=== PATIENT | female | born 2000 | race American Indian/Alaskan Native ===

== ENCOUNTER 2021-10-15 09:43 | Emergency (ER) | payer MEDICAID ==
[2021-10-15 10:46] VITALS: BP 125/69
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
[2021-10-15 14:24] LABS: Bacteria,Urine 1+ /HPF (Negative); Bilirubin,Urine NEG (Negative); Blood,Urine NEG (Negative); Color,Urine Yellow (Yellow); Mucus,Urine FEW /HPF; Protein,Urine <15 mg/dL mg/dL (Negative); Urobilinogen,Urine < 2.0 mg/dL (<2.0)
== END 2021-10-15 20:44 | disposition left against medical advice (07) ==
LOC: ED 09:43
DX: O00.01 Abdominal pregnancy with intrauterine pregnancy (principal); O26.891 Other specified pregnancy related conditions, first trimester; R10.9 Unspecified abdominal pain; S30.1XXA Contusion of abdominal wall, initial encounter; Z3A.14 14 weeks gestation of pregnancy; V87.7XXA Person injured in collision between other specified motor vehicles (traffic), initial encounter; X58.XXXA Exposure to other specified factors, initial encounter; Y92.89 Other specified places as the place of occurrence of the external cause; Y99.8 Other external cause status
CPT/HCPCS: 76805; 81001; 99283

== ENCOUNTER 2022-01-30 21:14 | Outpatient (CLI) | payer MEDICAID ==
[2022-01-30] MEDS ORDERED: LACTATED RINGERS 1,000 ML IV ONE (21:44)
[2022-01-30 21:56] VITALS: BP 139/85
[2022-01-30 22:03] LABS: Bilirubin,Urine NEG (Negative); Blood,Urine NEG (Negative); Color,Urine Yellow (Yellow); Protein,Urine <15 mg/dL mg/dL (Negative); Urobilinogen,Urine < 2.0 mg/dL (<2.0); WBC,Urine < 1.0 /HPF (0.0-6.0)
== END 2022-01-30 23:50 | disposition home or self-care (01) ==
LOC: LD 21:14 → TRG 21:14
PROVIDERS: ATTEND Obstetrics & Gynecology
DX: O26.893 Other specified pregnancy related conditions, third trimester (principal); R35.0 Frequency of micturition; Z3A.29 29 weeks gestation of pregnancy
CPT/HCPCS: 59025; 81001; 96360; J7120

== ENCOUNTER 2022-04-04 06:03 | Inpatient (IN) | payer MEDICAID ==
[2022-04-04] MEDS ORDERED: OXYTOCIN DRIP 30 UNITS/500 ML BAG IV SCH ×3 (07:00→16:00)
[2022-04-04] MEDS ORDERED: LACTATED RINGERS 1,000 ML IV SCH (07:00)
[2022-04-04 07:23] LABS: Hematocrit 37.6 % (30.3-42.9); Hemoglobin 12.3 gm/dl (10.1-14.3); Mean Corpuscular HGB Conc 33 % (30-34); Mean Corpuscular Volume 83 fl (79-97); Platelet Count 269 K/mm3 (140-440); Red Blood Count 4.55 M/mm3 (3.65-5.03); Red Cell Distribution Width 13.9 % (13.2-15.2)
[2022-04-04] MEDS ORDERED: MINERAL OIL 30 ML ORAL LIQD PO PRN (08:00)
[2022-04-04] MEDS ORDERED: METHYLERGONOVINE MALEATE 0.2 MG/ML VIAL IM PRN (08:00)
[2022-04-04] MEDS ORDERED: ePHEDrine SULFATE 50 MG/1 ML INJ IV PRN (08:00)
[2022-04-04] MEDS ORDERED: LOPERAMIDE 2 MG CAP PO PRN (08:00)
[2022-04-04] MEDS ORDERED: TERBUTALINE 1 MG/1 ML INJ SUB-Q PRN (08:00)
[2022-04-04] MEDS ORDERED: NALOXONE 0.4 MG/1 ML INJ IV PRN (08:00)
[2022-04-04] MEDS ORDERED: CARBOPROST TROMETHAMINE 250 MCG/1 ML INJ IM PRN (08:00)
[2022-04-04] MEDS ORDERED: ONDANSETRON 4 MG/2 ML INJ IV PRN ×2 (08:30→15:11)
[2022-04-04] MEDS ORDERED: BUTORPHANOL 2 MG/1 ML INJ IV PRN (08:30)
[2022-04-04] MEDS ORDERED: OXYTOCIN 10 UNIT/1 ML INJ IM PRN (08:30)
[2022-04-04] MEDS ORDERED: miSOPROStol 200 MCG TAB PR PRN (08:30)
[2022-04-04] MEDS ORDERED: ACETAMINOPHEN 325 MG TAB PO PRN (08:30)
[2022-04-04] MEDS ORDERED: fentaNYL 100 MCG/2 ML INJ IV PRN (08:30)
[2022-04-04] MEDS ORDERED: LIDOCAINE (2%) 20 MG/1 ML VIAL 20 ML MDV INFILTRATI SCH (08:30)
[2022-04-04] MEDS ORDERED: LIDOCAINE MPF (2%) 20 MG/1 ML VIAL 5 ML ONE (08:50)
--- NOTE | 2022-04-04 10:02 | History and Physical Report ---
History of Present Illness Date of examination: 04/04/22 Date of admission: 04/04/22 06:57 Chief complaint: contractions History of present illness: Pt is a 21 year old GABBY 04/15/22 at 38w3d presents with painful contractions and cervical dilation of 4/50/-3. She denies leakage of fluid or vaginal bleeding. She has had care at [facility]'s [facility] Appraiser since 23 wks complicated by obesity, late entry to care, atrial septal aneurysm followed by [facility], silent carrier of alpha thalassemia, and trichomonas and yeast treated with a negative test of cure. She is GBS negative. Past History Past Medical History: other (PCOS ) Past Surgical History: no surgical history DEPARTMENT CHAIR History: trichomonas (treated with negative test of cure ) Family/Genetic History: none Social history: no significant social history - Obstetrical History Expected Date of Delivery: 04/15/22 Actual Gestation: 38 Week(s) 3 Day(s) : 2 Para: 1 Hx # Term Pregnancies: 1 Number of Pregnancies: 0 Spontaneous Abortions: 0 Induced : 0 Number of Living Children: 1 Medications and Allergies Allergies Allergy/AdvReac Type Severity Reaction Status Date / Time azithromycin Allergy Vomiting Verified 01/30/22 21:33 [From Zithromax Z-Jose Carlos] Home Medications Medication Instructions Recorded Confirmed Last Taken Type Pnv,Calcium 72/Iron/Folic Acid 1 tab PO DAILY 01/30/22 01/30/22 01/30/22 History [M-Jesus Plus Tablet] Pnv,Calcium 72/Iron/Folic Acid 1 tab PO DAILY 01/30/22 01/30/22 01/30/22 History [M- Plus Tablet] Active Meds: Active Medications Acetaminophen (Acetaminophen 325 Mg Tab) 650 mg PO Q4H PRN PRN Reason: Pain, Mild (1-3) Butorphanol Tartrate (Butorphanol 2 Mg/1 Ml Inj) 1 mg IV Q2H PRN PRN Reason: Pain, Moderate(4-6) LABOR PAIN Carboprost Tromethamine (Carboprost Tromethamine 250 Mcg/1 Ml Inj) 250 mcg IM ONCE PRN PRN Reason: Uterine Bleeding Ephedrine Sulfate (Ephedrine Sulfate 50 Mg/1 Ml Inj) 10 mg IV Q2M PRN PRN Reason: Hypotension Fentanyl (Fentanyl 100 Mcg/2 Ml Inj) 100 mcg IV Q2H PRN PRN Reason: Pain,Severe (7-10) LABOR PAIN Oxytocin/Sodium Chloride (Pitocin/Ns 30 Unit/500ml) 30 units in 500 mls @ 2 m ls/hr IV TITR BARBIE; Protocol Lactated Ringer's (Lactated Ringers) 1,000 mls @ 125 mls/hr IV DIRECT BARBIE Last Admin: 04/04/22 07:40 Dose: 125 mls/hr Oxytocin/Sodium Chloride (Pitocin/Ns 30 Unit/500ml) 30 units in 500 mls @ 40 mls/hr IV TITR BARBIE; Protocol Lidocaine (Lidocaine (2%) 20 Mg/1 Ml Vial 20 Ml Mdv) 20 ml INFILTRATI ONCE@0830 BARBIE Stop: 04/05/22 08:29 Loperamide HCl (Loperamide 2 Mg Cap) 2 mg PO ONCE PRN PRN Reason: give with Hemabate Methylergonovine Maleate (Methylergonovine Maleate 0.2 Mg/Ml Vial) 0.2 mg IM ONCE PRN PRN Reason: Uterine Bleeding Mineral Oil (Mineral Oil 30 Ml Oral Liqd) 30 ml PO QHS PRN PRN Reason: Constipation Misoprostol (Misoprostol 200 Mcg Tab) 800 mcg OK ONCE PRN PRN Reason: Uterine Bleeding Naloxone HCl (Naloxone 0.4 Mg/1 Ml Inj) 0.1 mg IV Q2MIN PRN PRN Reason: Res Rate </= 8 or 02 SAT < 92% Ondansetron HCl (Ondansetron 4 Mg/2 Ml Inj) 4 mg IV Q8H PRN PRN Reason: Nausea And Vomiting Oxytocin (Oxytocin 10 Unit/1 Ml Inj) 10 unit IM ONCE PRN PRN Reason: Uterine Bleeding Terbutaline Sulfate (Terbutaline 1 Mg/1 Ml Inj) 0.25 mg SUB-Q ONCE PRN PRN Reason: Hyperstimulation/Hypertonicity Review of Systems All systems: negative - Vital Signs Vital signs: Vital Signs Pulse Pulse Ox 91 H 98 04/04/22 06:21 04/04/22 06:21 Temp Pulse Resp BP Pulse Ox 98.8 F 82 117/84 100 04/04/22 06:30 04/04/22 09:20 04/04/22 09:20 04/04/22 09:20 - Physical Exam Breasts: Positive: deferred Abdomen: Positive: soft (obese, gravid ) Uterus: Positive: enlarged (gravid ) Extremities: Positive: edema (trace) - Obstetrical FHR: auscultation normal Uterine Contraction Monitor Mode: External Cervical Dilatation: 10 Cervical Effacement Percentage: 100 station: +1 Uterine Contraction Pattern: Regular Uterine Tone Measurement Phase: Resting Uterine Contraction Intensity: Strong/Firm Results Result Diagrams: 04/04/22 07:04 Abnormal lab results 04/04/22 Range/Units 07:04 WBC 11.2 H (4.5-11.0) K/mm3 MCH 27 L (28-32) pg All other labs normal. Assessment and Plan A: IUP at 38w3d Transitional Labor Obesity Late entry to care atrial septal aneurysm Silent carrier of alpha thalassemia Trichomonas treated with a negative test of cure GBS negative P: Admit to labor and delivery Routine intrapartum care Anticipate vaginal delivery
--- NOTE | 2022-04-04 10:07 | Procedure Note ---
OB Delivery Note - Delivery Date of Delivery: 04/04/22 Surgeon: ALEJANDRINA KIRKLAND Estimated blood loss: other (400 mL) - Vaginal Delivery presentation: vertex Delivery position: OA Intrapartum events: meconium Delivery induction: none Delivery augmentation: rupture of membranes Delivery monitor: external FHT, external uterine Route of delivery: Delivery placenta: spontaneous Delivery cord: nuchal cord (loose, delivered through ) Episiotomy: none Delivery laceration: 1st degree (well-approximating, hemostatic without repair ) Anesthesia: none - Infant A at 1 minute: 8 at 5 minutes: 9 Infant Gender: Male (2790g (6lb 2oz) @ 0858 am)
[2022-04-04] MEDS ORDERED: IBUPROFEN 800 MG TAB PO PRN (14:50)
[2022-04-04] MEDS ORDERED: PROMETHAZINE 25 MG RECT SUPP PR PRN (15:11)
[2022-04-04] MEDS ORDERED: WITCH HAZEL/ GLYCERIN PAD TP PRN (15:11)
[2022-04-04] MEDS ORDERED: diphenhydrAMINE 25 MG CAP PO PRN (15:11)
[2022-04-04] MEDS ORDERED: BENZOCAINE/MENTHOL 20/0.5% TOP SPRAY 56 GM TP PRN (15:11)
[2022-04-04] MEDS ORDERED: MAGNESIUM HYDROXIDE (MOM) ORAL LIQD UDC PO PRN (15:11)
[2022-04-04] MEDS ORDERED: LANOLIN/ZINC/DIMETHICONE (LANSINOH) 7 GM TP PRN ×2 (15:11)
[2022-04-04] MEDS ORDERED: PROMETHAZINE 25 MG TAB PO PRN (15:11)
[2022-04-04] MEDS ORDERED: HYDROcodone/ACETAMINOPHEN 5-325 MG TAB PO PRN (15:11)
[2022-04-04] MEDS: IBUPROFEN 800 MG TAB PO SCH ×2 (15:15→23:59)
[2022-04-04] MEDS ORDERED: FERROUS SULFATE 325 MG TAB PO SCH (22:00)
[2022-04-04 23:01] LABS: Hematocrit 31.8 % (30.3-42.9); Hemoglobin 10.1 gm/dl (10.1-14.3)
[2022-04-05] MEDS: IBUPROFEN 800 MG TAB PO SCH (05:29)
--- NOTE | 2022-04-05 08:28 | Progress Note ---
Assessment and Plan - Patient Problems (1) Vaginal delivery Current Visit: Yes Status: Acute Plan to address problem: The patient is doing well Discharge home (2) Active labor at term Current Visit: Yes Status: Acute Subjective - Subjective Date of service: 04/05/22 Interval history: Patient is currently without any significant complaints. She is tolerating regular diet and reports her pain is well controlled. Patient reports: appetite normal, voiding normally, pain well controlled : doing well Objective - Vital Signs Latest vital signs: Vital Signs Temp Pulse Resp BP BP Pulse Ox Pulse Ox 04/05/22 05:27 98 04/05/22 04:05 98 04/05/22 02:10 98 04/05/22 00:30 98.2 F 80 20 118/76 99 04/04/22 23:55 98 04/04/22 21:28 98 04/04/22 20:25 98 04/04/22 20:22 98.2 F 82 20 97/60 98 04/04/22 17:14 98.0 F 79 18 126/82 100 04/04/22 13:00 98.1 F 76 16 125/73 100 100 04/04/22 12:29 100 04/04/22 10:35 71 113/72 99 04/04/22 10:30 74 100 04/04/22 10:25 78 100 04/04/22 10:20 71 111/77 100 04/04/22 10:15 77 99 04/04/22 10:10 79 99 04/04/22 10:05 75 114/79 99 04/04/22 10:00 69 100 04/04/22 09:55 73 99 04/04/22 09:50 75 120/72 99 04/04/22 09:45 77 99 04/04/22 09:40 77 99 04/04/22 09:35 81 110/63 98 04/04/22 09:30 82 99 04/04/22 09:25 82 100 04/04/22 09:20 82 117/84 100 04/04/22 09:15 87 99 04/04/22 09:14 94 H 90 04/04/22 09:10 80 100 04/04/22 09:07 84 139/76 04/04/22 09:05 80 139/105 99 04/04/22 09:00 79 100 04/04/22 08:55 117 H 100 04/04/22 08:50 100 H 100 04/04/22 08:49 95 H 90 04/04/22 08:45 87 100 04/04/22 08:40 75 100 04/04/22 08:35 72 98 04/04/22 08:30 86 100 Intake and Output 04/04/22 04/05/22 04/05/22 22:59 06:59 14:59 Intake Total 120 Balance 120 Intake: Oral 120 Other: Total, Intake Amount 120 # Voids Void 3 1
--- NOTE | 2022-04-05 08:29 | Discharge Summary ---
Providers - Providers Date of Admission: 04/04/22 06:57 Date of discharge: 04/05/22 Attending physician: ALEJANDRINA KIRKLAND 04/04/22 15:11 Consult to Relations Manager [CONS] Routine Reason For Exam: assistance with , SNS Primary care physician: SKATING CARHOP Hospitalization Reason for admission: active labor Delivery: Discharge diagnosis: IUP at term delivered Hospital course: The patient was admitted in active labor. She had a successful vaginal delivery. course was uneventful. Condition at discharge: Good Disposition: 01 HOME / SELF CARE / HOMELESS - Discharge Diagnoses (1) Vaginal delivery Status: Acute (2) Active labor at term Status: Acute Plan - Discharge Medications Prescriptions: Ibuprofen [Motrin] 800 mg PO Q8HR PRN #30 tablet PRN Reason: Pain , Severe (7-10) HYDROcodone/APAP 5-325 [[place] 5/325] 1 each PO Q6HR PRN #15 tablet PRN Reason: Pain - Provider Discharge Summary Activity: no sex for 6 weeks, no heavy lifting 4 weeks, no strenuous exercise Diet: routine Instructions: routine Additional instructions: [] Smoking cessation referral if applicable(refer to patient education folder for contact #) [] Refer to [facility] Booklet Call your doctor immediately for: * Fever > 100.5 * Heavy vaginal bleeding ( >1 pad per hour) * Severe persistent headache * Shortness of breath * Reddened, hot, painful area to leg or breast * Schedule visit in 4 weeks - Follow up plan
[2022-04-05 09:15] VITALS: BP 107/62
[2022-04-05] MEDS ORDERED: MEASLES, MUMPS & RUBELLA 12,500 UNIT/0.5 ML VACCINE SUB-Q ONE (10:08)
[2022-04-05] MEDS ORDERED: TETANUS,DIPH,PERTUSS(ACELL) VACCINE 0.5 ML SYRINGE IM ONE (10:09)
== END 2022-04-05 15:15 | disposition home or self-care (01) | DRG 775 ==
LOC: TRG 06:03 → APU 06:05 → TRG 06:57 → APU 06:57 → LD 08:14 → OB 13:15
PROVIDERS: ADMIT Obstetrics & Gynecology; ATTEND Obstetrics & Gynecology
PROC: 10E0XZZ Delivery of Products of Conception, External Approach (ICD-10-PCS; principal; 2022-04-04)
PROC: 3E0234Z Introduction of Serum, Toxoid and Vaccine into Muscle, Percutaneous Approach (ICD-10-PCS; 2022-04-05)
PROC: 3E0134Z Introduction of Serum, Toxoid and Vaccine into Subcutaneous Tissue, Percutaneous Approach (ICD-10-PCS; 2022-04-05)
DX: O99.02 Anemia complicating childbirth (principal); Z20.822 Contact with and (suspected) exposure to COVID-19; O99.214 Obesity complicating childbirth; O77.0 Labor and delivery complicated by meconium in amniotic fluid; O69.81X0 Labor and delivery complicated by cord around neck, without compression, not applicable or unspecified; O70.0 First degree perineal laceration during delivery; Z3A.38 38 weeks gestation of pregnancy; Z37.0 Single live birth; D56.0 Alpha thalassemia; Z23 Encounter for immunization
CPT/HCPCS: 36415; 85014; 85018; 85027; 86850; 86900; 86901; G0378; J7120; U0003